=== PATIENT | male | born 1990 | race American Indian/Alaskan Native ===

== ENCOUNTER 2017-03-26 05:08 | Emergency (ER) | payer SELFPAY ==
[2017-03-26] MEDS ORDERED: SUBLIMAZE IV ONE (05:19)
--- NOTE | 2017-03-26 05:57 | XRay Report ---
FINAL REPORT PROCEDURE: XR SHOULDER 2+V LT TECHNIQUE: Left shoulder radiographs including AP views in internal and external rotation and abduction. CPT 46770 HISTORY: deformity, pain OF LEFT SHOULDER COMPARISON: No prior studies are available for comparison. FINDINGS: Fracture (s) and/or Dislocation(s): There is anterior dislocation of the left glenohumeral joint.. Joint space(s): Normal . Soft tissues: Normal . Bone mineralization: Normal . Foreign bodies: None . IMPRESSION: Anterior left shoulder dislocation.
[2017-03-26] MEDS ORDERED: NACL 0.9% 1000 ML 1,000 ML ONE (06:25)
[2017-03-26] MEDS ORDERED: AMIDATE IV ONE ×2 (06:25→06:27)
[2017-03-26] MEDS ORDERED: TORADOL IV ONE (06:27)
--- NOTE | 2017-03-26 06:33 | Emergency Department Report ---
HPI - General Chief Complaint: Shoulder Injury Time Seen by Provider: 03/26/17 06:26 - HPI HPI: Room 1 The patient is 26-year-old male presenting with a chief complaint of left shoulder pain. The patient states at approximate 04:30 he was lying on his left shoulder when he became dislocated. Patient states she's had a history of dislocations in his left shoulder in the past. The patient gives his pain a score of 10/10 Location: Left Shoulder Duration: Constant since 04:30 Quality: Pain Severity: 10/10 Modifying factors: Movement causes pain Context: [see above] Mode of transportation: [not driving] ED Past Medical Hx - Past Medical History Additional medical history: gastritis, bronchitis - Family History Family history: no significant - Social History Smoking Status: Current Every Day Smoker (1/2 pack per day) Substance Use Type: None (denies illicit drug use) - Medications Home Medications: Home Medications Medication Instructions Recorded Confirmed Last Taken Type Promethazine Dm [Phenergan Dm 5 ml PO Q6H PRN #60 ml 07/02/15 Unknown Rx 6.25/15 mg 5 ml] Azithromycin [Zithromax Z-NAYELI] 250 mg PO DAILY #5 tab 08/19/15 Unknown Rx Promethazine Dm [Phenergan Dm 5 ml PO Q6H PRN #120 08/19/15 Unknown Rx 6.25/15 mg 5 ml] Loratadine [Claritin] 10 mg PO DAILY #30 tablet 09/18/15 Unknown Rx Promethazine /Codeine 5 ml PO Q6H PRN #150 ml 09/18/15 Unknown Rx [Phenergan/Codeine 6.25-10 mg/5 ml] Sulfamethoxazole/Trimethoprim 1 each PO BID #20 tablet 09/18/15 Unknown Rx [Bactrim DS TAB] Albuterol Sulfate [Ventolin HFA] 2 puff IH Q4H PRN #1 hfa.aer.ad 11/29/15 Unknown Rx Azithromycin [Zithromax TAB] 250 mg PO QDAY #6 tablet 11/29/15 Unknown Rx predniSONE [Deltasone] 20 mg PO QDAY #5 tab 11/29/15 Unknown Rx traMADol [Ultram] 50 mg PO Q6HR PRN #20 tablet 11/29/15 Unknown Rx Cyclobenzaprine [Flexeril] 10 mg PO TID PRN #14 tablet 03/26/17 Unknown Rx HYDROcodone/APAP 5-325 [[place] 1 - 2 each PO Q6HR PRN #14 tablet 03/26/17 Unknown Rx 5/325] Ibuprofen [Motrin 800 MG tab] 800 mg PO Q8HR PRN #20 tablet 03/26/17 Unknown Rx ED Review of Systems ROS: Stated complaint: LT SHOULDER PAIN Other details as noted in HPI Comment: All other systems reviewed and negative Constitutional: denies: chills, fever Eyes: denies: eye pain, eye discharge, vision change ENT: denies: ear pain, throat pain Respiratory: denies: cough, shortness of breath, wheezing Cardiovascular: denies: chest pain, palpitations Endocrine: no symptoms reported Gastrointestinal: denies: abdominal pain, nausea, diarrhea Genitourinary: denies: urgency, dysuria Musculoskeletal: arthralgia. denies: back pain, joint swelling Skin: denies: rash, lesions Neurological: denies: headache, weakness, paresthesias Psychiatric: denies: anxiety, depression Hematological/Lymphatic: denies: easy bleeding, easy bruising Physical Exam - Physical Exam Vital Signs: Vital Signs 03/26/17 03/26/17 03/26/17 05:09 05:18 05:38 Temperature 98.2 F Pulse Rate 92 H Respiratory 19 19 18 Rate Blood Pressure 120/68 [Right] O2 Sat by Pulse 98 98 Oximetry Physical Exam: GENERAL: The patient is well-developed well-nourished male lying on stretcher appearing to be in moderate discomfort. [] HEENT: Normocephalic. Atraumatic. Extraocular motions are intact. Patient has moist mucous membranes. Oropharynx clear NECK: Trachea midline CHEST/LUNGS: There is no respiratory distress noted. HEART/CARDIOVASCULAR: Regular. There is no tachycardia. 2+ left radial pulse ABDOMEN: There is no abdominal distention. SKIN: There is no diaphoresis. NEURO: The patient is awake, alert, and oriented. The patient is cooperative. The patient has no focal neurologic deficits. The patient has normal speech. Normal sensation left upper extremity. 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 ED Course Vital Signs 03/26/17 03/26/17 03/26/17 05:09 05:18 05:38 Temperature 98.2 F Pulse Rate 92 H Respiratory 19 19 18 Rate Blood Pressure 120/68 [Right] O2 Sat by Pulse 98 98 Oximetry ED Medical Decision Making - Radiology Data Radiology results: image reviewed (left shoulder x-ray 1, left shoulder x-ray #2 ) interpreted by me: Left shoulder x-ray #1-anterior dislocation. No fracture Left shoulder x-ray #2-no dislocation. No fracture - Differential Diagnosis shoulder dislocation, humeral fracture, shoulder separation Critical care attestation.: If time is entered above; I have spent that time in minutes in the direct care of this critically ill patient, excluding procedure time. ED Disposition Clinical Impression: Anterior dislocation of left shoulder, Acute pain of left shoulder Disposition: TO HOME OR SELFCARE Is pt being admited?: No Does the pt Need Aspirin: No Condition: Stable Instructions: Shoulder Dislocation (ED) Additional Instructions: Return to the emergency department immediately should you develop worsening symptoms, fever, inability to tolerate food or liquid or any other concerns. Prescriptions: Cyclobenzaprine [Flexeril] 10 mg PO TID PRN #14 tablet PRN Reason: Muscle Spasm HYDROcodone/APAP 5-325 [[place] 5/325] 1 - 2 each PO Q6HR PRN #14 tablet PRN Reason: Pain Ibuprofen [Motrin 800 MG tab] 800 mg PO Q8HR PRN #20 tablet PRN Reason: Pain Referrals: PRIMARY CAREMD [Primary Care Provider] - 3-5 Days SINA REAL MD [Staff Physician] - 3-5 Days (Dr. Real is an orthopedic surgeon. Please follow up with him for further evaluation) Time of Disposition: 06:53 Blank Doc - Documentation Documentation: The patient required sedation for closed reduction of left anterior shoulder dislocation. The risks, benefits, and alternatives were discussed with the patient and/or the family who consented. The patient had a screening history and exam completed and there are no contraindications to sedation. The patient has been NPO for 2 hours and has an ASA designation of 1. The patient was placed on monitors and was under constant nursing observation. Under my direct supervision the patient was given etomidate 12 mg IV. An appropriate level of sedation was achieved. The patient remained hemodynamically stable with normal oxygen saturations during the procedure. There were no complications related to the sedation. Patient was observed until mental status returned to baseline. Patient was subsequently deemed appropriate for discharge home with responsible service order dispatcher chief. The sedation lasted 10 minutes The anterior shoulder dislocation was reduced using modified Jeffy . A palpable reduction was noted. Post reduction xrays revealed appropriate reduction.
[2017-03-26 07:13] VITALS: BP 120/75
--- NOTE | 2017-03-26 07:27 | XRay Report ---
RIGHT SHOULDER, ONE VIEW 0634 hours: HISTORY: Postreduction film, dislocation. Findings: The anterior, inferior dislocation at the right glenohumeral joint has been reduced since 0523 hours. There is suggestion of a Hill-Sachs deformity. The remainder of the bony structures are intact. IMPRESSION: Anatomic alignment of the left shoulder. Possible Hill-Sachs deformity. If further evaluation is needed, MRI left shoulder without contrast or MR left shoulder arthrogram is recommended.
== END 2017-03-26 07:12 | disposition home or self-care (01) ==
LOC: ED 05:08
DX: S43.015A Anterior dislocation of left humerus, initial encounter (principal); F17.210 Nicotine dependence, cigarettes, uncomplicated; X58.XXXA Exposure to other specified factors, initial encounter; Y93.89 Activity, other specified; Y92.89 Other specified places as the place of occurrence of the external cause; Y99.8 Other external cause status
CPT/HCPCS: 23650; 73020; 73030; 99283; J3010; J7030

== ENCOUNTER 2017-12-16 11:11 | Emergency (ER) | payer SELFPAY ==
[2017-12-16 11:42] VITALS: BP 125/56
[2017-12-16] MEDS ORDERED: NORCO 5/325 PO ONE (15:35)
--- NOTE | 2017-12-16 15:50 | Emergency Department Report ---
Upper Extremity - HPI Chief Complaint: Shoulder Injury Stated Complaint: SHOULDER PAIN Time Seen by Provider: 12/16/17 15:34 Upper Extremity: Left Shoulder Occurred When: >5 Days Severity: moderate Symptoms: Yes Pain with Movement, No Deformity, No Limited Range of Movement, No Numbness, No Weakness, No Swelling, No Bruising/Ecchymosis, No Laceration or Abrasion Other History: 27-year-old male past medical history multiple left sided shoulder dislocations presents with complaint of over one week of acute on chronic left shoulder pain. Patient is awake alert and oriented 3. Wearing a left shoulder immobilizer which she states he wears occasionally when his left shoulder is hurting him. Denies any shortness of breath chest pain or paresthesias. States that rotating his left shoulder ache severely. Denies any recent direct trauma or falls. Denies any fevers or chills. Denies any changes in skin color overlying shoulder. States his last shoulder dislocation was approximately 6 months ago. ED Review of Systems ROS: Stated complaint: SHOULDER PAIN Other details as noted in HPI Constitutional: denies: chills, fever Eyes: denies: eye pain, eye discharge, vision change ENT: denies: ear pain, throat pain Respiratory: denies: cough, shortness of breath, wheezing Cardiovascular: denies: chest pain, palpitations Endocrine: no symptoms reported Gastrointestinal: denies: abdominal pain, nausea, diarrhea Genitourinary: denies: urgency, dysuria Musculoskeletal: as per HPI, arthralgia. denies: back pain, joint swelling Skin: denies: rash, lesions Neurological: denies: headache, weakness, paresthesias Psychiatric: denies: anxiety, depression Hematological/Lymphatic: denies: easy bleeding, easy bruising ED Past Medical Hx - Past Medical History Hx Hypertension: No Hx CVA: No Hx Heart Attack/AMI: No Hx Congestive Heart Failure: No Hx Diabetes: No Hx Deep Vein Thrombosis: No Hx Pulmonary Embolism: No Hx GERD: No Hx Liver Disease: No Hx Renal Disease: No Hx Sickle Cell Disease: No Hx Arthritis: No Hx Headaches / Migraines: No Hx Seizures: No Hx Kidney Stones: No Hx Psychiatric Treatment: No Hx Asthma: No Hx COPD: No Hx Tuberculosis: No Hx Dementia: No Hx HIV: No Additional medical history: gastritis, bronchitis - Surgical History Hx Coronary Stent: No Hx Open Heart Surgery: No Hx Pacemaker: No Hx Internal Defibrillator: No Hx Cholecystectomy: No Hx Appendectomy: No Hx Breast Surgery: No - Social History Smoking Status: Current Every Day Smoker Substance Use Type: None - Medications Home Medications: Home Medications Medication Instructions Recorded Confirmed Last Taken Type Promethazine Dm [Phenergan Dm 5 ml PO Q6H PRN #60 ml 07/02/15 Unknown Rx 6.25/15 mg 5 ml] Azithromycin [Zithromax Z-NAYELI] 250 mg PO DAILY #5 tab 08/19/15 Unknown Rx Promethazine Dm [Phenergan Dm 5 ml PO Q6H PRN #120 08/19/15 Unknown Rx 6.25/15 mg 5 ml] Loratadine [Claritin] 10 mg PO DAILY #30 tablet 09/18/15 Unknown Rx Promethazine /Codeine 5 ml PO Q6H PRN #150 ml 09/18/15 Unknown Rx [Phenergan/Codeine 6.25-10 mg/5 ml] Sulfamethoxazole/Trimethoprim 1 each PO BID #20 tablet 09/18/15 Unknown Rx [Bactrim DS TAB] Albuterol Sulfate [Ventolin HFA] 2 puff IH Q4H PRN #1 hfa.aer.ad 11/29/15 Unknown Rx Azithromycin [Zithromax TAB] 250 mg PO QDAY #6 tablet 11/29/15 Unknown Rx predniSONE [Deltasone] 20 mg PO QDAY #5 tab 11/29/15 Unknown Rx traMADol [Ultram] 50 mg PO Q6HR PRN #20 tablet 11/29/15 Unknown Rx Cyclobenzaprine [Flexeril] 10 mg PO TID PRN #14 tablet 03/26/17 Unknown Rx HYDROcodone/APAP 5-325 [[place] 1 - 2 each PO Q6HR PRN #14 tablet 03/26/17 Unknown Rx 5/325] Ibuprofen [Motrin 800 MG tab] 800 mg PO Q8HR PRN #20 tablet 03/26/17 Unknown Rx Naproxen [Naprosyn TAB] 375 mg PO BID PRN #16 tablet 12/16/17 Unknown Rx Upper Extremity Exam - Exam General: Vital signs noted. No distress. Alert and acting appropriately. Head and Torso: No HEENT Abnormality, No Neck Tenderness, No Chest/Lungs Abnormality, No Abdominal Tenderness, No Back Tenderness Shoulder Exam: Yes Normal Range of Motion in Shoulder (abduction and abduction and internal and external rotation preserved but painful with abduction.), No Shoulder Tenderness, No Clavicle Tenderness, No Shoulder Deformity, No AC Joint Tenderness Arm Exam: No Arm/Humerus Tenderness, No Arm Deformity Elbow: No Elbow Tenderness, No Normal Range of Motion in Elbow, No Elbow Deformity Forearm: No Forearm Tenderness, No Forearm Deformity, No Pain with Pronation, No Pain with Supination Wrist: Yes Normal ROM in Wrist, No Wrist Tenderness, No Wrist Deformity, No Snuffbox Tenderness, No Pain with Axial Thumb Compression Hand: Yes Normal ROM in Digit(s), No Hand Tenderness, No Hand Deformity, No Digit Tenderness, No Digit(s) Deformity, No Tendon Dysfunction CMS Exam: Yes Normal Distal Pulses, Yes Normal Capillary Refill, Yes Normal Distal Sensation, No Broken Skin ED Course Vital Signs 12/16/17 11:37 Temperature 99.4 F Pulse Rate 74 Respiratory 16 Rate Blood Pressure 125/56 O2 Sat by Pulse 99 Oximetry ED Medical Decision Making - Medical Decision Making A/P: Acute on chronic left shoulder pain 1-naproxen when necessary 2-I advised patient to follow up with orthopedics and primary care 3-left upper extremity neurovascularly intact. Shoulder range of motion preserved on exam 4- Critical care attestation.: If time is entered above; I have spent that time in minutes in the direct care of this critically ill patient, excluding procedure time. ED Disposition Clinical Impression: Left shoulder pain Qualifiers: Chronicity: chronic Qualified Code(s): M25.512 - Pain in left shoulder; G89.29 - Other chronic pain Disposition: TO HOME OR SELFCARE Is pt being admited?: No Does the pt Need Aspirin: No Condition: Stable Instructions: Arthralgia (ED) Prescriptions: Naproxen [Naprosyn TAB] 375 mg PO BID PRN #16 tablet PRN Reason: Pain Referrals: SINA TEJADA MD [Staff Physician] - 3-5 Days [facility] [Provider Group] - 3-5 Days Forms: Work/School Release Form(ED) Time of Disposition: 16:44
--- NOTE | 2017-12-16 16:29 | XRay Report ---
FINAL REPORT PROCEDURE: Left shoulder. TECHNIQUE: Three views. HISTORY: left shoulder pain hx of dislocations COMPARISON: Left shoulder 03/26/2017. FINDINGS: The bones appear intact without fracture or dislocation. The joint spaces appear normal. The soft tissues are unremarkable. IMPRESSION: Normal study.
== END 2017-12-16 16:57 | disposition home or self-care (01) ==
LOC: ED 11:11
DX: M25.512 Pain in left shoulder (principal); G89.29 Other chronic pain; F17.200 Nicotine dependence, unspecified, uncomplicated
CPT/HCPCS: 99283

== ENCOUNTER 2019-04-17 21:48 | Emergency (ER) | payer SELFPAY ==
[2019-04-17 21:57] VITALS: BP 113/55
--- NOTE | 2019-04-17 22:19 | XRay Report ---
Left shoulder 3 views INDICATION: Left shoulder pain following injury IMPRESSION: No fracture or subluxation of the left shoulder is identified. Signer Name: Steve Burgos MD Signed: 04/17/2019 10:15 PM Workstation Name: [id number]
[2019-04-18] MEDS ORDERED: PERCOCET 5/325 PO STA (00:01)
[2019-04-18] MEDS ORDERED: TORADOL IM STA (00:03)
--- NOTE | 2019-04-18 00:13 | Emergency Department Report ---
Upper Extremity - HPI Chief Complaint: Extremity Injury, Upper Stated Complaint: DISLOCATED SHOULDER Time Seen by Provider: 04/17/19 22:29 Upper Extremity: Left Shoulder Occurred When: Today Mechanism: Other (was laying in there was shoulder hangover reports that it popped out of place before spontaneously relocated. Reports a history of recurrent shoulder dislocations. Denies any recent trauma to the to the shoulder. No numbness or tingling. No chest pain, palpitation or shortness of breath. He reports continued pain to the shoulder and requests analgesia) Symptoms: Yes Pain with Movement, No Deformity, No Limited Range of Movement, No Numbness, No Weakness, No Swelling, No Bruising/Ecchymosis, No Laceration or Abrasion ED Review of Systems ROS: Stated complaint: DISLOCATED SHOULDER Other details as noted in HPI Comment: All other systems reviewed and negative ED Past Medical Hx - Past Medical History Previous Medical History?: Yes Hx Hypertension: No Hx CVA: No Hx Heart Attack/AMI: No Hx Congestive Heart Failure: No Hx Diabetes: No Hx Deep Vein Thrombosis: No Hx Pulmonary Embolism: No Hx GERD: No Hx Liver Disease: No Hx Renal Disease: No Hx Sickle Cell Disease: No Hx Arthritis: No Hx Headaches / Migraines: No Hx Seizures: No Hx Kidney Stones: No Hx Psychiatric Treatment: No Hx Asthma: No Hx COPD: No Hx Tuberculosis: No Hx Dementia: No Hx HIV: No Additional medical history: gastritis, bronchitis, dislocated shoulder - Surgical History Past Surgical History?: No Hx Coronary Stent: No Hx Open Heart Surgery: No Hx Pacemaker: No Hx Internal Defibrillator: No Hx Cholecystectomy: No Hx Appendectomy: No Hx Breast Surgery: No - Social History Smoking Status: Current Every Day Smoker Substance Use Type: None - Medications Home Medications: Home Medications Medication Instructions Recorded Confirmed Last Taken Type Promethazine Dm (Nf) [Phenergan Dm 5 ml PO Q6H PRN #60 ml 07/02/15 Unknown Rx 6.25/15 mg 5 ml] Azithromycin [Zithromax Z-NAYELI] 250 mg PO DAILY #5 tab 08/19/15 Unknown Rx Promethazine Dm (Nf) [Phenergan Dm 5 ml PO Q6H PRN #120 08/19/15 Unknown Rx 6.25/15 mg 5 ml] Loratadine [Claritin] 10 mg PO DAILY #30 tablet 09/18/15 Unknown Rx Promethazine /Codeine 5 ml PO Q6H PRN #150 ml 09/18/15 Unknown Rx [Phenergan/Codeine 6.25-10 mg/5 ml] Sulfamethoxazole/Trimethoprim 1 each PO BID #20 tablet 09/18/15 Unknown Rx [Bactrim DS TAB] Albuterol Sulfate [Ventolin HFA] 2 puff IH Q4H PRN #1 hfa.aer.ad 11/29/15 Unknown Rx Azithromycin [Zithromax TAB] 250 mg PO QDAY #6 tablet 11/29/15 Unknown Rx predniSONE [Deltasone] 20 mg PO QDAY #5 tab 11/29/15 Unknown Rx traMADol [Ultram] 50 mg PO Q6HR PRN #20 tablet 11/29/15 Unknown Rx Cyclobenzaprine [Flexeril] 10 mg PO TID PRN #14 tablet 03/26/17 Unknown Rx HYDROcodone/APAP 5-325 [[place] 1 - 2 each PO Q6HR PRN #14 tablet 03/26/17 Unknown Rx 5/325] Ibuprofen [Motrin 800 MG tab] 800 mg PO Q8HR PRN #20 tablet 03/26/17 Unknown Rx Naproxen [Naprosyn TAB] 375 mg PO BID PRN #16 tablet 12/16/17 Unknown Rx Ketorolac [Toradol] 10 mg PO Q6H PRN #20 tablet 04/18/19 Unknown Rx Upper Extremity Exam - Exam General: Vital signs noted. No distress. Alert and acting appropriately. Head and Torso: No HEENT Abnormality, No Neck Tenderness, No Chest/Lungs Abnormality, No Abdominal Tenderness, No Back Tenderness Shoulder Exam: Yes Shoulder Tenderness (no sulcus sign), Yes Normal Range of Motion in Shoulder (pain with outstretched.), No Clavicle Tenderness, No Shoulder Deformity, No AC Joint Tenderness Arm Exam: No Arm/Humerus Tenderness, No Arm Deformity Elbow: No Elbow Tenderness, No Normal Range of Motion in Elbow, No Elbow Deformity Forearm: No Forearm Tenderness, No Forearm Deformity, No Pain with Pronation, No Pain with Supination Wrist: Yes Normal ROM in Wrist, No Wrist Tenderness, No Wrist Deformity, No Snuffbox Tenderness, No Pain with Axial Thumb Compression Hand: Yes Normal ROM in Digit(s), No Hand Tenderness, No Hand Deformity, No Digit Tenderness, No Digit(s) Deformity, No Tendon Dysfunction CMS Exam: No Broken Skin, No Normal Distal Pulses, No Normal Capillary Refill, No Normal Distal Sensation ED Course Vital Signs 04/17/19 21:55 Temperature 98.5 F Pulse Rate 64 Respiratory 18 Rate Blood Pressure 113/55 O2 Sat by Pulse 99 Oximetry ED Medical Decision Making - Radiology Data Radiology results: report reviewed (x-ray showed no dislocation.) X-ray shows no fractures or dislocation. Joint is and is appropriate location. - Medical Decision Making 27. Medical no chronic shoulder dislocations. Plan is to follow with orthopedics so he can have this shoulder instability evaluated discussed with him the dangers of consecutive shoulder dislocations. It isn't advised to refrain from that certain types of activities. Critical care attestation.: If time is entered above; I have spent that time in minutes in the direct care of this critically ill patient, excluding procedure time. ED Disposition Clinical Impression: Chronic shoulder pain Disposition: [id number] TO HOME OR SELFCARE Is pt being admited?: No Does the pt Need Aspirin: No Condition: Stable Instructions: Shoulder Dislocation (ED), Rotator Cuff Injury (ED), Magnetic Resonance Imaging (ED) Additional Instructions: Please follow up. Physician as discussed your recurrent shoulder dislocations Prescriptions: Ketorolac [Toradol] 10 mg PO Q6H PRN #20 tablet PRN Reason: Pain Referrals: SINA REAL MD [Staff Physician] - 3-5 Days (Please follow with Dr. Real for your recurrent shoulder dislocations. Currently, his shoulder is in place with no findings to suggest any bony injury)
== END 2019-04-18 00:28 | disposition home or self-care (01) ==
LOC: ED 21:48
DX: M25.512 Pain in left shoulder (principal); G89.29 Other chronic pain
CPT/HCPCS: 73030; 96372; 99284; J1885

== ENCOUNTER 2021-07-21 22:11 | Emergency (ER) | payer OTHER ==
[2021-07-21 22:35] VITALS: BP 129/79
[2021-07-21] MEDS ORDERED: ONDANSETRON 4 MG ODT TAB PO ONE (23:11)
[2021-07-21] MEDS ORDERED: HYDROcodone/ACETAMINOPHEN 7.5-325MG TAB PO ONE (23:11)
[2021-07-21] MEDS ORDERED: IBUPROFEN 600 MG TAB PO ONE (23:11)
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
== END 2021-07-22 00:15 | disposition home or self-care (01) ==
LOC: ED 22:11
DX: S22.42XD Multiple fractures of ribs, left side, subsequent encounter for fracture with routine healing (principal); S49.92XD Unspecified injury of left shoulder and upper arm, subsequent encounter; F17.200 Nicotine dependence, unspecified, uncomplicated; V89.2XXD Person injured in unspecified motor-vehicle accident, traffic, subsequent encounter
CPT/HCPCS: 99282; J3490; Q0162

== ENCOUNTER 2022-05-10 21:17 | Emergency (ER) | payer SELFPAY ==
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
--- NOTE | 2022-05-11 09:19 | XRay Report ---
CHEST 2 VIEWS INDICATION / CLINICAL INFORMATION: sob. COMPARISON: None available. FINDINGS: SUPPORT DEVICES: None. HEART / MEDIASTINUM: No significant abnormality. LUNGS / PLEURA: No significant pulmonary or pleural abnormality. No pneumothorax. ADDITIONAL FINDINGS: No significant additional findings. IMPRESSION: 1. No acute findings. Signer Name: Khanh Wright MD Signed: 05/11/2022 9:15 AM Workstation Name: [id number]
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
[2022-05-11 13:43] VITALS: BP 113/56
== END 2022-05-11 11:04 | disposition home or self-care (01) ==
LOC: ED 21:17
DX: S20.219A Contusion of unspecified front wall of thorax, initial encounter (principal); S20.229A Contusion of unspecified back wall of thorax, initial encounter; F17.200 Nicotine dependence, unspecified, uncomplicated; V09.9XXA Pedestrian injured in unspecified transport accident, initial encounter; Y93.89 Activity, other specified; Y92.89 Other specified places as the place of occurrence of the external cause; Y99.8 Other external cause status
CPT/HCPCS: 71046; 99283